=== PATIENT | male | born 1965 | race Caucasian/White ===

== ENCOUNTER 2025-03-24 09:10 | Emergency (ER) | payer MEDICARE, SELFPAY ==
[2025-03-24] VITALS (17 sets, daily range): BP systolic 125–146; BP diastolic 76–93; PULSE 82–96; RESP 19–22; TEMP 37.4; O2SAT 90–94
--- NOTE | ~2025-03-24 | XR_ITS ---
Clinical Indication: Shortness of breath PA and lateral views of the chest: Comparison: None Findings: The lungs are clear, without evidence of focal consolidation or pleural effusion. Probable COPD. Cardiomediastinal silhouette is within normal limits. Bones and soft tissues are unremarkable. Impression: Clear lungs. Probable COPD. Reviewed, dictated and finalized at location . Impression: Clear lungs. Probable COPD.
--- NOTE | 2025-03-24 09:23 | ECG_ITS ---
Test Date: 2025-03-24 09:37:39 Measurements Intervals [place] Rate: 86 P: 64 DC: 147 QRS: -13 QRSD: 95 T: 75 QT: 355 QTc: 425 Interpretive Statements SINUS RHYTHM WITH SINUS ARRHYTHMIA NORMAL ECG No previous ECG available for comparison Electronically Signed On 03-24-2025 10:01:13 CDT by Obie Ojeda D.O.
--- NOTE | 2025-03-24 09:23 | ED_ITS ---
HPI - GI Bleed General Chief complaint: GI Bleed Stated complaint: blood in stools Time Seen by Provider: 03/24/25 09:16 Source: patient Mode of arrival: EMS Limitations: no limitations History of Present Illness HPI Narrative: 59 year old male arrives to the Emergency Department via EMS. Patient is resident of [facility]. Patient was sent to the Emergency Department because of black stool and reported shortness of breath with pulse ox 75% Patient states he does not feel short of breath and I'm breathing like I normally do. Denies chest pain. Patient states he has been taking iron tablets for 3 weeks. He is having some diarrhea. He denies abdominal pain or any problems. Patient is not exactly sure why he is here. MD complaint: melena Relieving factors: none Exacerbating factors: none Context: other (patient taking iron tablets) Associated symptoms: denies other symptoms Treatments Prior to Arrival: none Related Data Home Medications ?Medication ?Instructions ?Recorded ?Confirmed ?Last Taken ?Type amlodipine 5 mg tablet 5 mg PO DAILY 03/24/25 Unknown History ascorbic acid (vitamin C) 250 mg 250 mg PO BID 03/24/25 Unknown History tablet (Vitamin C) aspirin 81 mg capsule 81 mg PO DAILY 03/24/25 Unknown History citalopram 20 mg tablet 20 mg PO DAILY 03/24/25 Unknown History ferrous sulfate 325 mg (65 mg 325 mg PO BID 03/24/25 Unknown History iron) tablet fluticasone furoate 50 1 inh inhalation Q24H 03/24/25 Unknown History mcg-vilanterol 25 mcg/dose inhalation powder (Breo Ellipta) latanoprost 0.005 % eye drops 1 drp EACH EYE DAILY 03/24/25 Unknown History losartan 100 mg tablet 100 mg PO DAILY 03/24/25 Unknown History metoprolol tartrate 50 mg tablet 50 mg PO BID 03/24/25 Unknown History risperidone 3 mg tablet (Risperdal) 3 mg PO HS 03/24/25 Unknown History rivaroxaban 20 mg tablet (Xarelto) 20 mg PO DAILY 03/24/25 Unknown History sodium chloride 1,000 mg soluble 1,000 mg PO DAILY 03/24/25 Unknown History tablet Allergies Allergy/AdvReac Type Severity Reaction Status Date / Time No Known Allergies Allergy Verified 03/24/25 09:38 Review of Systems 2 Review of Systems: All systems reviewed & are unremarkable except as noted in HPI and below Constitutional: Constitutional: Reports as per HPI, Denies chills, Denies fever(s) and Denies weakness Eyes: Eyes: Reports as per HPI and Reports no additional eye complaints ENT: Reports system reviewed and no additional complaints, except as documented Cardiovascular: Cardiovascular: Reports as per HPI, Reports no additional cardiovascular complaints and Denies chest pain Respiratory: Respiratory: Reports as per HPI, Reports no additional respiratory complaints and Denies dyspnea Gastrointestinal: Gastrointestinal: Reports as per HPI, Reports no additional gastrointestinal complaints, Denies abdominal pain, Reports diarrhea, Denies nausea and Denies vomiting Genitourinary: Genitourinary: Reports no additional male genitourinary complaints Musculoskeletal: Musculoskeletal: Reports no additional musculoskeletal complaints Integumentary/Breasts: Skin/Breast: Reports system reviewed and no additional complaints, except as docu Neurologic: Reports system reviewed and no additional complaints, except as documented Endocrine: Endocrine: Reports no additional endocrine complaints Hematologic/Lymphatic: Hematologic/Lymphatic: Reports no additional hematologic/lymphatic complaints Allergic/Immunologic: Allergic/Immunologic: Reports no additional allergic/immunologic complaints Exam 2 Const: General: healthy appearing, no acute distress and alert Nutritional Appearance: well nourished Orientation/consciousness: patient oriented x3 Limitations: no limitations HENMT: Head: normal to inspection Ears: external ears normal F shaka/Nose/Sinus: Normal external nose present Face and sinus: normal facial exam Mouth: Yes Normal oral and palatal mucosa present Teeth and gingiva: dentition normal Throat: posterior oropharynx normal Eyes: Conjunctivae: conjunctivae normal Pupils: Equal, round and reactive pupils present EOM: EOMs intact bilaterally Direct Ophthalmoscopy: no photophobia Neck: Neck: normal visual inspection Chest: Chest palpation & inspection: normal inspection of the chest Resp: Effort & Inspection: normal respiratory effort Auscultation: clear to auscultation bilaterally Cardio: Rate: regular rate Rhythm: regular rhythm Heart sounds: Murmur heart sound present GI: Inspection: non-distended GI Palp: Yes Soft to palpation and No Tenderness to palpation present (GI) Auscultation: normal bowel sounds R ectal Exam: normal sphincter tone and No heme positive stool : General: Yes bladder normal to palpation Back/Spine/Pelvis: Back: no CVA tenderness Skin: General skin exam: normal color Rashes: no rashes Wounds: no wounds Neuro: General: patient oriented x3, moves all extremities, no meningeal signs, no focal motor deficits and CN's II-XI intact bilaterally Cranial nerves: Yes Nystagmus not present Speech: normal speech Extrem: General: normal to inspection and no clubbing, cyanosis or edema Psych: Mental Status: mental status grossly normal Course Course Emergency Course: 59 year old male is sent to the Emergency Department via EMS from [facility] for evaluation of black stool and shortness of breath with reported pulse ox 75%. Patient denies any problems on arrival. States he is not short of breath and has been taking iron tablets. PE: no acute findings CBC: H/H 10.7/36.7, Plt 296; wbc 11.5 with 86 S, 7 L, 7 M CMP: Na 136, K 3.4, Cl 103, CO2 29, Glc 129, BUN 9, Cr 0.53; LFT's normal TNI: <0.012 EKG: NSR, 86, NAC AB.46/ 60/ 42/ 29, 92% ra D-dimer: 0.19 INR/PTT: 1.1 /11.6/ 35.3 Lactic: 1 Occult Blood Stool: negative CXR: NAD Tx: residential monitor, pulse ox *reviewed and discussed results with patient. Discussed further management. Patient voices understanding and agreement. Instructions Vital Signs Vital signs: Vital Signs Temperature 37.4 C 03/24/25 09:10 Pulse Rate 91 03/24/25 09:10 Respiratory Rate 22 H 03/24/25 09:10 Blood Pressure 144/89 H 03/24/25 09:10 Pulse Oximetry 92 03/24/25 09:10 Oxygen Delivery Room Air 03/24/25 09:10 Temperature 37.4 C 03/24/25 09:10 Pulse Rate 85 03/24/25 10:16 Respiratory Rate 20 03/24/25 10:16 Blood Pressure 140/76 03/24/25 10:16 Pulse Oximetry 91 03/24/25 10:16 Oxygen Delivery Room Air 03/24/25 10:16 MDM - GI Bleed Lab Data 03/24/25 09:53 03/24/25 09:52 Labs: Lab Results 03/24/25 03/24/25 03/24/25 Range/Units 09:30 09:48 09:52 WBC (4.8-10.8) K/mm3 RBC (4.70-6.10) M/mm3 Hgb (14.0-18.0) g/dL Hct (40.0-54.0) % MCV (78.0-102.0) fL MCH (27.0-31.0) pg MCHC (32-36) g/dL RDW (11.6-14.4) % Plt Count (150-420) K/mm3 MPV (8.7-11.0) fl Immature Gran % (Auto) (0.0-0.0) % Neut % (Auto) (50.0-70.0) % Lymph % (Auto) (18.0-42.0) % [place] % (Auto) (2.0-11.0) % Eos % (Auto) (1.0-6.0) % Baso % (Auto) (0.0-1.0) % Lymph # (Auto) (1.10-4.50) K/mm3 [place] # (Auto) (0.10-0.90) K/mm3 Eos # (Auto) (0.02-0.50) K/mm3 Baso # (Auto) (0.00-0.10) K/mm3 Abs Immat Gran (auto) (0.00-0.00) K/mm3 Absolute Neuts (auto) (1.70-7.20) K/mm3 Absolute Nucleated RBC (0.00-0.00) K/mm3 Nucleated RBC % (0-0.0) % PT 11.6 (9.50-12.1) Seconds INR 1.1 APTT 35.3 H (23.9-30.70) Sec D-Dimer 0.19 (0.19-0.50) mg/L Methemoglobin (0-1.5) % Sodium 136 L (137-145) mmol/L Potassium 3.4 (3.4-5.0) mmol/L Chloride 103 (98-107) mmol/L Carbon Dioxide 29 (22-30) mmol/L Anion Gap 4 (4-12) mmol/L BUN 9 (9-20) mg/dL Creatinine 0.53 L (0.7-1.3) mg/dL Estim Creat Clear Calc 147 ml/min Estimated GFR > 60 (59 - ) Glucose 129 H (65-110) mg/dL Calculated Osmolality 282 L (285-295) mOsm/kg Lactic Acid 1.0 (0.4-2.0) mmol/L Calcium 8.9 (8.4-10.2) mg/dL Total Bilirubin 0.3 (0.2-1.3) mg/dL AST 21 (17-59) U/L ALT 14 (6-50) U/L Alkaline Phosphatase 62 (38-126) U/L Troponin I Cancelled Total Protein (6.3-8.2) g/dL Albumin (3.5-5.1) g/dL Stool Occult Blood Negative (Negative) 03/24/25 03/24/25 03/24/25 Range/Units 09:52 09:53 10:05 WBC 11.5 H (4.8-10.8) K/mm3 RBC 4.68 L (4.70-6.10) M/mm3 Hgb 10.7 L (14.0-18.0) g/dL Hct 36.7 L (40.0-54.0) % MCV 78.4 (78.0-102.0) fL MCH 22.9 L (27.0-31.0) pg MCHC 29.2 L (32-36) g/dL RDW 24.5 H (11.6-14.4) % Plt Count 296 (150-420) K/mm3 MPV 9.7 (8.7-11.0) fl Immature Gran % (Auto) 0.3 H (0.0-0.0) % Neut % (Auto) 85.6 H (50.0-70.0) % Lymph % (Auto) 6.0 L (18.0-42.0) % [place] % (Auto) 7.5 (2.0-11.0) % Eos % (Auto) 0.3 L (1.0-6.0) % Baso % (Auto) 0.3 (0.0-1.0) % Lymph # (Auto) 0.69 L (1.10-4.50) K/mm3 [place] # (Auto) 0.86 (0.10-0.90) K/mm3 Eos # (Auto) 0.03 (0.02-0.50) K/mm3 Baso # (Auto) 0.03 (0.00-0.10) K/mm3 Abs Immat Gran (auto) 0.04 H (0.00-0.00) K/mm3 Absolute Neuts (auto) 9.84 H (1.70-7.20) K/mm3 Absolute Nucleated RBC 0.00 (0.00-0.00) K/mm3 Nucleated RBC % 0.0 (0-0.0) % PT (9.50-12.1) Seconds INR APTT (23.9-30.70) Sec D-Dimer (0.19-0.50) mg/L Methemoglobin 0.4 (0-1.5) % Sodium (137-145) mmol/L Potassium (3.4-5.0) mmol/L Chloride (98-107) mmol/L Carbon Dioxide (22-30) mmol/L Anion Gap (4-12) mmol/L BUN (9-20) mg/dL Creatinine (0.7-1.3) mg/dL Estim Creat Clear Calc ml/min Estimated GFR (59 - ) Glucose (65-110) mg/dL Calculated Osmolality (285-295) mOsm/kg Lactic Acid (0.4-2.0) mmol/L Calcium (8.4-10.2) mg/dL Total Bilirubin (0.2-1.3) mg/dL AST (17-59) U/L ALT (6-50) U/L Alkaline Phosphatase (38-126) U/L Troponin I Pending Total Protein 6.6 (6.3-8.2) g/dL Albumin 3.6 (3.5-5.1) g/dL Stool Occult Blood (Negative) ABG Data ABG results: 03/24/25 10:05 Puncture Site Right radial ABG pH 7.46 H ABG pCO2 42.3 ABG pO2 59.7 L ABG PO2/FiO2 Ratio Not Reportable ABG HCO3 29.1 H ABG O2 Saturation 91.9 L ABG O2 Content 15.1 L ABG Base Excess 4.8 H A-a Gradient Not Reportable Oxyhemoglobin 91.0 L Carboxyhemoglobin 0.6 Reduced Hemoglobin 8.0 H O2 Delivery Device Room air O2 Liters/Min 0.0 Discharge Plan Discharge Clinical Impression: COPD (chronic obstructive pulmonary disease) Patient Disposition: Home Condition: Stable Instructions: COPD (Chronic Obstructive Pulmonary Disease) (ED) Additional Instructions: Continue home medications Use inhaler as needed Follow up Primary Care Provider Return as needed Patient Language: [place] Prescriptions: New albuterol sulfate [Ventolin HFA] 90 mcg/actuation HFA aerosol inhaler 2 puff inhalation QID PRN (Reason: shortness of breath or wheezing) Qty: 8.5 0RF No Action amlodipine 5 mg tablet 5 mg PO DAILY aspirin 81 mg capsule 81 mg PO DAILY Breo Ellipta 50-25 mcg/dose blister with device 1 inh inhalation Q24H citalopram 20 mg tablet 20 mg PO DAILY losartan 100 mg tablet 100 mg PO DAILY sodium chloride 1,000 mg tablet,soluble 1,000 mg PO DAILY ferrous sulfate 325 mg (65 mg iron) tablet 325 mg PO BID metoprolol tartrate 50 mg tablet 50 mg PO BID ascorbic acid (vitamin C) [Vitamin C] 250 mg tablet 250 mg PO BID Xarelto 20 mg tablet 20 mg PO DAILY Rx Instructions: must administer with evening meal latanoprost 0.005 % drops 1 drp EACH EYE DAILY risperidone [Risperdal] 3 mg tablet 3 mg PO Follow-up/Referrals: Marco Bowen MD [Primary Care Provider] - Time of Disposition: 11:04
[2025-03-24 09:35] LABS: Occult Blood Negative (Negative)
[2025-03-24 09:57] LABS: Basophils Absolute Auto 0.03 K/mm3 (0.00-0.10); Basophils Percent Auto 0.3 % (0.0-1.0); Eosinophils Absolute Auto 0.03 K/mm3 (0.02-0.50); Eosinophils Percent Auto 0.3 % (1.0-6.0); Hematocrit 36.7 % (40.0-54.0); Hemoglobin 10.7 g/dL (14.0-18.0); Immature Granulocyte Absolute 0.04 K/mm3 (0.00-0.00); Immature Granulocyte Percent A 0.3 % (0.0-0.0); Lymphocytes Absolute Auto 0.69 K/mm3 (1.10-4.50); Mean Corpuscular HGB Conc 29.2 g/dL (32-36); Mean Corpuscular Hemoglobin 22.9 pg (27.0-31.0); Mean Corpuscular Volume 78.4 fL (78.0-102.0); Mean Platelet Volume 9.7 fl (8.7-11.0); Monocytes Absolute Auto 0.86 K/mm3 (0.10-0.90); Monocytes Percent Auto 7.5 % (2.0-11.0); Neutrophils Absolute Auto 9.84 K/mm3 (1.70-7.20); Neutrophils Percent Auto 85.6 % (50.0-70.0); Platelet Count Result 296 K/mm3 (150-420); Red Blood Count 4.68 M/mm3 (4.70-6.10); Red Cell Distribution Width 24.5 % (11.6-14.4); White Blood Count 11.5 K/mm3 (4.8-10.8)
[2025-03-24 10:07] LABS: Base Excess ABG 4.8 mmol/L (0-2); Carboxyhemoglobin 0.6 % (0-1.5); HCO3 ABG 29.1 mmol/L (23-29); Methemoglobin ABG 0.4 % (0-1.5); Oxygen Content ABG 15.1 %vol (16.0-22.0); Oxygen Saturation ABG 91.9 % (95-97); PCO2 ABG 42.3 mmHg (35-45); PO2 ABG 59.7 mmHg (80-90); pH ABG 7.46 (7.35-7.45)
[2025-03-24 10:08] LABS: INR 1.1; Partial Thromboplastin Time 35.3 Sec (23.9-30.70); Prothrombin Time 11.6 Seconds (9.50-12.1)
[2025-03-24 10:08] LABS: Device ROOM AIR; Modified Allen's Test Pass; Site Drawn RIGHT RADIAL
[2025-03-24 10:21] LABS: Alanine Aminotransferase 14 U/L (6-50); Albumin Level 3.6 g/dL (3.5-5.1); Alkaline Phosphatase 62 U/L (38-126); Anion Gap 4 mmol/L (4-12); Aspartate Amino Transferase 21 U/L (17-59); Bilirubin,Total 0.3 mg/dL (0.2-1.3); Blood Urea Nitrogen 9 mg/dL (9-20); Calcium 8.9 mg/dL (8.4-10.2); Carbon Dioxide 29 mmol/L (22-30); Chloride 103 mmol/L (98-107); Estimated CRCL calculation 147 ml/min; Estimated Glomerular Filt Rate > 60; Glucose 129 mg/dL (65-110); Osmolality Calculated 282 mOsm/kg (285-295); Sodium 136 mmol/L (137-145); Total Protein 6.6 g/dL (6.3-8.2)
[2025-03-24 10:27] LABS: Potassium 3.4 mmol/L (3.4-5.0)
[2025-03-24 10:35] LABS: D Dimer 0.19 mg/L (0.19-0.50)
--- NOTE | 2025-03-24 10:41 | PC.NURSE ---
pt ambulated to bathroom without difficulty. back to cot. call [facility] in reach
[2025-03-24 10:55] LABS: Troponin I < 0.012 ng/mL (0.000-0.034)
--- NOTE | 2025-03-24 11:02 | PC.NURSE ---
call to Angeli Frankel [facility]. will superintendent transportation pt.
--- NOTE | 2025-03-24 11:17 | PC.NURSE ---
pt to lobby via wheelchair to wait for kristi.
--- NOTE | 2025-03-24 11:25 | PC.NURSE ---
sent copy of labs, ekg, chest xray with pt for nursing facility/care home care.
--- NOTE | 2025-03-24 11:41 | PC.NURSE ---
assisted to car and bathroom, departed with kristi.
== END 2025-03-24 11:05 | disposition home or self-care (01) ==
PROVIDERS: Emergency Provider Emergency Medicine; PCP Family Medicine
DX: J44.9 Chronic obstructive pulmonary disease, unspecified (principal); Z79.899 Other long term (current) drug therapy; Z79.82 Long term (current) use of aspirin; Z79.01 Long term (current) use of anticoagulants
CPT/HCPCS: 36415; 36600; 71046; 80053; 82272; 82375; 82805; 83050; 83605; 84484; 85018; 85025; 85380; 85610; 85730; 93005; 99284

== ENCOUNTER 2025-09-18 10:56 | Outpatient (CLI) | payer MEDICARE, SELFPAY ==
[2025-09-18 11:10] LABS: Hematocrit 39.7 % (40.0-54.0); Hemoglobin 13.4 g/dL (14.0-18.0); Immature Granulocyte Percent A 0.2 % (0.0-0.0); Lymphocytes Absolute Auto 1.16 K/mm3 (1.10-4.50); Mean Corpuscular HGB Conc 33.8 g/dL (32-36); Mean Corpuscular Hemoglobin 30.0 pg (27.0-31.0); Mean Corpuscular Volume 88.8 fL (78.0-102.0); Nucleated Red Blood Cells Absolute Auto 0.00 K/mm3 (0.00-0.00); Nucleated Red Blood Cells Perc 0.0 % (0-0.0); Platelet Count Result 228 K/mm3 (150-420); Red Blood Count 4.47 M/mm3 (4.70-6.10); White Blood Count 8.3 K/mm3 (4.8-10.8)
[2025-09-18 11:35] LABS: Iron 71 ug/dL (49-181)
[2025-09-18 11:37] LABS: Alanine Aminotransferase 15 U/L (6-50); Albumin Level 4.4 g/dL (3.5-5.1); Alkaline Phosphatase 90 U/L (38-126); Anion Gap 5 mmol/L (4-12); Aspartate Amino Transferase 24 U/L (17-59); Bilirubin,Total 0.4 mg/dL (0.2-1.3); Blood Urea Nitrogen 10 mg/dL (9-20); Calcium 9.5 mg/dL (8.4-10.2); Carbon Dioxide 30 mmol/L (22-30); Chloride 104 mmol/L (98-107); Cholesterol 106 mg/dL (0-200); Estimated Glomerular Filt Rate > 60; Glucose 98 mg/dL (65-110); HDL Direct 62 mg/dL; Osmolality Calculated 287 mOsm/kg (285-295); Potassium 4.6 mmol/L (3.4-5.0); Sodium 139 mmol/L (137-145); Total Protein 6.8 g/dL (6.3-8.2); Triglycerides 58 mg/dL (<150)
[2025-09-18 11:47] LABS: Percent Iron Saturation 25 % (20-50)
[2025-09-18 12:09] LABS: Prostate Specific Antigen 0.5 ng/mL (< OR = 4.0)
[2025-09-18 12:13] LABS: Ferritin 42.20 ng/mL (11.1-264)
== END 2025-09-18 10:57 | disposition home or self-care (01) ==
LOC: CHSLAB 10:59
PROVIDERS: PCP Family Medicine; Visit Provider Family Medicine
DX: I10 Essential (primary) hypertension (principal); Z12.5 Encounter for screening for malignant neoplasm of prostate; D50.9 Iron deficiency anemia, unspecified; E78.2 Mixed hyperlipidemia
CPT/HCPCS: 36415; 80053; 80061; 82728; 83540; 83550; 84153; 85025; G0103